=== PATIENT | female | born 1985 | race Caucasian/White ===

== ENCOUNTER 2023-11-04 23:34 | Emergency (ER) | payer SELFPAY ==
[~2023-11-04] VITALS: Ht 154.9 cm; Wt 70.0 kg
[2023-11-04 23:36] VITALS: O2SAT 100
[2023-11-05 00:24] LABS: BASOPHILS % 0.8 % (0.0-2.0); EOSINOPHILS % 8.1 % (0.0-5.0); HEMATOCRIT. 38.8 % (36.0-48.0); HEMOGLOBIN. 12.9 g/dL (12.0-16.0); LYMPHOCYTES % 30.4 % (20.0-50.0); MEAN CORPUSCULAR HEMOGLOBIN 31.5 pg (28.0-32.0); MEAN CORPUSCULAR HGB CONC 33.4 g/dL (31.0-37.0); MEAN CORPUSCULAR VOLUME 94.4 fL (81.0-99.0); MEAN PLATELET VOLUME 8.5 fl (7.4-10.4); MONOCYTES % 6.5 % (2.0-8.0); NEUTROPHILS % 54.2 % (40.0-76.0); PLATELET 268 x1000/uL (130-400); RED BLOOD CELL COUNT 4.11 mill/uL (4.2-5.4); RED CELL DISTRIBUTION WIDTH 13.5 % (11.6-14.6); WHITE BLOOD COUNT 5.9 x1000/uL (4.5-11.0)
[2023-11-05 00:28] LABS: CHLORIDE 108 mEq/L (98-107); POTASSIUM 3.8 mEq/L (3.5-5.1); SODIUM 136 mEq/L (136-145)
[2023-11-05 00:29] LABS: CARBON DIOXIDE 22 mEq/L (21-32)
[2023-11-05 00:30] LABS: CALCIUM 7.8 mg/dL (8.7-10.4)
[2023-11-05 00:34] LABS: CREATININE 0.7 mg/dL (0.6-1.0); GLUCOSE 101 mg/dL (70-105)
[2023-11-05 00:35] LABS: UREA NITROGEN BLOOD 8 mg/dL (9-23)
[2023-11-05] MEDS: ONDANSETRON HCL 4MG/2ML INJ IV STA (00:39)
[2023-11-05] MEDS: SODIUM CHLORIDE 0.9% 1,000 ML IV ONE (00:40)
[2023-11-05 00:42] LABS: HCG SCREEN NEGATIVE
[2023-11-05 00:44] LABS: ETHANOL BLOOD 294 mg/dL (<10)
[2023-11-05 00:48] VITALS: BP 98/61; PULSE 75; RESP 18; TEMP 36.72516; O2SAT 98
[2023-11-05 00:54] LABS: LACTIC ACID 2.4 mmol/L (0.4-2.0)
== END 2023-11-05 01:00 | disposition home or self-care (01) ==
LOC: ER 23:34
DX: T51.0X1A Toxic effect of ethanol, accidental (unintentional), initial encounter (principal); Y92.9 Unspecified place or not applicable
CPT/HCPCS: 36415; 99283; 80048; 80320; 84703; 83605; 85025; 96361; 96374; J7030; J2405; Z7610; G0480